=== PATIENT | female | born 1995 | race African-American/Black ===

== ENCOUNTER 2016-07-12 22:27 | Emergency (ER) | payer OTHER, MEDICAID ==
[~2016-07-12] VITALS: Ht 162.6 cm; Wt 100.0 kg
[~2016-07-12 22:27] MED LIST: Z.0.NO CURRENT MEDS
[2016-07-12 22:28] VITALS: BP 139/86; PULSE 86; RESP 16; TEMP 98.4; O2SAT 97
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
== END 2016-07-13 02:22 | disposition home or self-care (01) ==
LOC: NEPE 22:27
DX: R07.9 Chest pain, unspecified (principal); V43.52XA Car driver injured in collision with other type car in traffic accident, initial encounter; Y93.9 Activity, unspecified; Y92.9 Unspecified place or not applicable; Y99.9 Unspecified external cause status
CPT/HCPCS: 71020; 73130; 73564; 99284